=== PATIENT | female | born 1980 | race Caucasian/White ===

== ENCOUNTER 2017-10-16 18:28 | Emergency (ER) | payer OTHER, MEDICAID ==
[~2017-10-16] VITALS: Ht 170.2 cm; Wt 63.5 kg
[~2017-10-16 18:28] MED LIST: KEFLEX500 MG PO; PROAIR HFA8.5 GM
[2017-10-16] MEDS ORDERED: MEDROLDOSEPACK PO (18:46)
[2017-10-16 18:59] VITALS: BP 121/62
== END 2017-10-16 19:00 | disposition home or self-care (01) ==
LOC: M.ERS 18:28
DX: T63.441A Toxic effect of venom of bees, accidental (unintentional), initial encounter (principal); J45.909 Unspecified asthma, uncomplicated; F17.210 Nicotine dependence, cigarettes, uncomplicated; Z88.2 Allergy status to sulfonamides; Y92.89 Other specified places as the place of occurrence of the external cause